=== PATIENT | male | born 1940 | race Caucasian/White ===

== ENCOUNTER 2021-11-15 10:59 | Emergency (ER) | payer MEDICARE, OTHER ==
[2021-11-15] MEDS ORDERED: Acetaminophen 500 MG TAB ONE (11:41)
[2021-11-15 11:48] LABS: Hemoglobin 13.4 g/dL (14.0-18.0); Mean Corpuscular HGB CONC 31.2 g/dL (32.0-36.0); Mean Corpuscular Hemoglobin 29.8 pg (27.0-31.0); Mean Corpuscular Volume 95.3 fL (78.0-98.0); Mean Platelet Volume 10.5 fL (7.4-10.4); Platelet Count 116 thou/uL (130-400); Red Blood Cell (RBC) Count 4.49 mill/uL (4.70-6.10); White Blood Cell (WBC) Count 3.8 thou/uL (4.8-10.8)
[2021-11-15] MEDS ORDERED: Sodium Chloride 0.9% 1,000 ML ONE ×2 (11:50→12:19)
[2021-11-15 11:56] LABS: ALT (SGPT) 15 U/L (8-55); AST (SGOT) 22 U/L (5-34); Albumin 4.3 g/dL (3.4-4.8); Alkaline Phosphatase 46 U/L (40-110); Anion Gap 14 mmol/L (10-20); BUN (Urea Nitrogen) 15 mg/dL (8.4-25.7); Bilirubin, Total 0.7 mg/dL (0.2-1.2); Calc. Creatinine Clearance 0 mL/min (70-130); Calcium 8.7 mg/dL (7.8-10.44); Carbon Dioxide 21 mmol/L (23-31); Chloride 104 mmol/L (98-107); Estimated GFR 87; Globulin 2.7 g/dL (2.4-3.5); Glucose 108 mg/dL (83-110); Potassium 4.1 mmol/L (3.5-5.1); Sodium 135 mmol/L (136-145)
[2021-11-15] MEDS ORDERED: Sodium Chloride 0.9% 100 ML ONE (12:19)
[2021-11-15] MEDS ORDERED: Sodium Chloride 0.9% 500 ML ONE (12:19)
[2021-11-15] MEDS ORDERED: Cefepime 2 GM VIAL ONE (12:19)
[2021-11-15 12:24] LABS: Lymphocytes 27 % (21-51); MDiff Complete? YES; Monocytes 9 % (0-10); Neutrophil 64 % (42-75); Platelet Morphology Comment Appears Decreased
[2021-11-15 12:25] LABS: RBC Morphology Normal
[2021-11-15 12:29] LABS: Bilirubin Negative (Negative); Blood, Urine Small (Negative); Clarity Slightly Cloudy (Clear); Glucose, Urine (Dipstick) Negative (Negative); Ketone, Urine Negative (Negative); Leukocyte Negative (Negative); Nitrite Negative (Negative); Protein, Urine (Dipstick) 30 mg/dL (Neg-Trace); Specific Gravity, Urine 1.025 (1.005-1.030); Urobilinogen 0.2 mg/dL (Less than 2); pH, Urine 6.5 (5.0-9.0)
[2021-11-15] MEDS ORDERED: Vancomycin HCl 750 MG VIAL ONE (12:30)
[2021-11-15 12:34] LABS: Bacteria/HPF Rare-Few HPF (None Seen); RBC/HPF 0-3 HPF (0-3); Squamous Epithelial 0-3 HPF (0-3); WBC/HPF 0-3 HPF (0-3)
[2021-11-15 13:23] LABS: SARS-CoV-2 NAA Rapid Test DETECTED (NotDetected)
== END 2021-11-15 15:22 | disposition short-term general hospital (02) ==
LOC: NAV ERS 10:59
DX: U07.1 COVID-19 (principal); R01.1 Cardiac murmur, unspecified; I10 Essential (primary) hypertension; Z79.899 Other long term (current) drug therapy
CPT/HCPCS: 71045; 80053; 83605; 85025; 87040; 96361; 96365; 96366; 99285; U0002; 81003; 81015; J0692; J3370; J3490; J7030; J7050